=== PATIENT | female | born 1980 | race Caucasian/White ===

== ENCOUNTER 2018-05-28 08:23 | Day surgery (SDC) | payer OTHER ==
[2018-05-25 14:40] VITALS: BMI 27.4
[2018-05-28] MEDS ORDERED: MIDAZOLAM HCL 2 MG/2 ML SINGLE DOSE VIAL ONE (09:40)
[2018-05-28] MEDS ORDERED: PROPOFOL 20 ML ONE (09:40)
[2018-05-28] MEDS ORDERED: DEXAMETHASONE SOD PHOSPHATE 4 MG/1 ML VIAL ONE (09:55)
[2018-05-28] MEDS ORDERED: ONDANSETRON 4 MG/2 ML VIAL ONE ×2 (09:55→11:06)
[2018-05-28] MEDS ORDERED: ceFAZolin SODIUM 1 GM VIAL ONE (09:55)
[2018-05-28] MEDS ORDERED: KETOROLAC TROMETHAMINE 30 MG/1 ML VIAL ONE (09:55)
--- NOTE | 2018-05-28 10:38 | OP ---
Operative Note - Note: Operative Date: 05/28/18 Pre-Operative Diagnosis: right knee medial meniscal tear Operation: right knee arthroscopy with partial medial meniscectomy Post-Operative Diagnosis: Same as Pre-op Surgeon: Long Boston Anesthesiologist/RESIDENT IN DIAGNOSTIC RADIOLOGY: Scott Giron Anesthesia: General Estimated Blood Loss (mls): 10 Operative Report Dictated: Yes
[2018-05-28] MEDS ORDERED: PROMETHAZINE HCL 25 MG/1 ML VIAL IVPUSH PRN (10:40)
[2018-05-28] MEDS ORDERED: oxyCODONE HCL 5 MG TABLET PO PRN ×2 (10:40)
[2018-05-28] MEDS ORDERED: ONDANSETRON 4 MG/2 ML VIAL IVPUSH PRN (10:40)
--- NOTE | 2018-05-28 11:04 | OP ---
DATE OF OPERATION: 05/27/2018 PREOPERATIVE DIAGNOSIS: Right knee medial meniscus tear. POSTOPERATIVE DIAGNOSIS: Right knee medial meniscus tear. PROCEDURE: Right knee arthroscopy with partial medial meniscectomy. SURGEON: Long Boston MD ANESTHESIA: General. POSTOPERATIVE CONDITION: Stable. COMPLICATIONS: None. INDICATIONS: This is a pleasant 37-year-old female who has been suffering from medial knee pain. MRI demonstrated medial meniscal tear. Treatment options including nonoperative versus operative management were discussed. Operative risks were discussed in detail including bleeding, infection, neurovascular injury, need for further surgery, postoperative pain and stiffness, progression of osteoarthritis. We discussed medical risks such as heart attack, stroke, DVT, PE, and . I addressed the postoperative rehabilitation course. I reviewed the use of perioperative DVT and antibiotic prophylaxis. I addressed all of the patient's questions and concerns. She voiced understanding and elected to proceed. DESCRIPTION OF PROCEDURE: The patient was brought to the operating room where general anesthesia was administered. The right lower extremity was prepped and draped in the usual sterile fashion. A preoperative dose of antibiotics was given, and the usual time-out procedure was performed. The knee was examined demonstrated full range of motion, no effusion, and good stability. Now the portal sites were marked out. A lateral portal was now established using an 11 blade. The arthroscope was passed into the knee. Examination of the patellofemoral joint demonstrated no significant articular lesions. Passing the arthroscope into the femoral notch demonstrated intact ACL and PCL. The arthroscope was now passed medial. A medial portal was established under spinal needle localization. The meniscus was examined demonstrating a radial component of the tear on the inner portion of the meniscus, which extended into a horizontal component more peripherally. Utilizing a combination of meniscal biters and a shaver, this was debrided down to a stable base. The arthroscope was passed into the lateral compartment. Here, the meniscus and articular surfaces were unremarkable. Probing of the meniscus demonstrated it was stable. At this point, the excess fluid was withdrawn from the knee. The portals were sutured using 3-0 nylon. Sterile dressings were placed. The patient was extubated and transferred to the recovery room in stable condition. Wale [id number]/[id number]
[2018-05-28] MEDS ORDERED: oxyCODONE HCL 5 MG TABLET ONE (11:37)
[2018-05-28 12:11] VITALS: TEMP 97.8
[2018-05-28 13:13] VITALS: BP 112/66; PULSE 80
== END 2018-05-28 13:25 | disposition home or self-care (01) ==
LOC: FASU 08:23
PROVIDERS: ATTEND Orthopaedic Surgery Sports Medicine
PROC: 0SBC4ZZ Excision of Right Knee Joint, Percutaneous Endoscopic Approach (ICD-10-PCS; principal; 2018-05-28 10:00)
DX: S83.241A Other tear of medial meniscus, current injury, right knee, initial encounter (principal); X58.XXXA Exposure to other specified factors, initial encounter; Y93.9 Activity, unspecified; Y92.9 Unspecified place or not applicable
CPT/HCPCS: 84703; 94760; 97116-GP

== ENCOUNTER 2020-11-24 15:30 | Emergency (ER) | payer OTHER | END 2020-11-24 16:24 | disposition home or self-care (01) | LOC: JVIRT 15:30 | DX: R07.0 Pain in throat (principal); U07.1 COVID-19 | CPT/HCPCS: C9803; G2012-GT; U0003 ==